=== PATIENT | male | born 1990 | race Caucasian/White ===

== ENCOUNTER 2016-10-23 16:12 | Emergency (ER) | END 2016-10-23 17:38 | disposition left against medical advice (07) | DX: Z53.21 Procedure and treatment not carried out due to patient leaving prior to being seen by health care provider (principal) ==

== ENCOUNTER 2016-11-01 14:49 | Emergency (ER) | payer OTHER ==
[~2016-11-01] VITALS: Wt 72.5 kg
[~2016-11-01 14:49] MED LIST: BACTDS PO; CEPH-443 PO; CLOT30CR24 TOP; DOXY-220 PO; FLUC150T17 PO; HYDR-3498 PO; HYDR-906 PO; IBUP-1542 PO; IBUP800T25 PO; ONDA4TAB35 PO; TERB30CR15 TOP
[2016-11-01] MEDS ORDERED: AMO500 PO (17:08)
[2016-11-01] MEDS ORDERED: IBUP-1542 PO (17:08)
--- NOTE | 2016-11-01 17:11 | ERD ---
ER Documentation Chief Complaint Date/Time DATE: 11/01/16 TIME: 17:09 Chief Complaint sore throat and fever no cough for the past 2 days. HPI 26-year-old male claims sore throat and fever for last 3 days. Denies cough, vomiting, abdominal pain, neck stiffness, rashes. He has noticed complaint of a right knee injury 6 months ago which has persistent pain. He has not seen orthopedics as advised. Thinks he has a meniscal injury and thinks he needs an MRI. ROS All systems reviewed and are negative except as per history of present illness. Medications Home Meds Active Scripts Ibuprofen* (Motrin*) 600 Mg Tab, 600 MG PO Q6, #15 TAB Prov:MARGARET HDEZ MD 11/01/16 Amoxicillin* (Amoxicillin*) 500 Mg Cap, 500 MG PO TID for 10 Days, CAP Prov:MARGARET HDEZ MD 11/01/16 Ibuprofen* (Motrin*) 600 Mg Tab, 600 MG PO Q6, #30 TAB Prov:MARGARET HDEZ MD 07/14/16 Cephalexin* (Keflex*) 500 Mg Capsule, 500 MG PO QID for 10 Days, CAP Prov:MARGARET HDEZ MD 07/14/16 Hydrocodone/Acetaminophen ([place] 5-325 Tablet) 1 Each Tablet, 1 TAB PO Q6H Y for PAIN, #10 TAB Prov:TIKA THRASHER NP 06/19/16 Ibuprofen* (Motrin*) 800 Mg Tab, 800 MG PO Q6, #20 TAB Prov:TIKA THRASHER NP 06/19/16 Sulfamethoxazole-Trimethoprim* (Bactrim* DS) 800-160 Mg Tab, 1 TAB PO BID for 7 Days, #14 TAB 0 Refills Prov:NEVIN OSULLIVAN-Angélica 01/15/16 Fluconazole* (Diflucan*) 150 Mg Tablet, 150 MG PO once a week, #3 TAB 0 Refills Prov:NEVIN OSULLIVAN-Angélica 01/15/16 Cephalexin* (Keflex*) 500 Mg Capsule, 500 MG PO TID for 7 Days, #21 CAP 0 Refills Prov:NEVIN OSULLIVAN-C 01/15/16 Terbinafine Hcl* (Terbinafine Hcl*) 1% - 30 Gm Cream..g., 1 APPLIC TOP BID for 14 Days, #2 TUB 0 Refills Prov:NEVIN OSULLIVAN PA-C 01/15/16 Doxycycline Monohydrate* (Doxycycline Monohydrate*) 100 Mg Tablet, 100 MG PO BID for 10 Days, TAB Prov:MARGARET HDEZ MD 01/04/16 Clotrimazole* (Clotrimazole* AF) 1% - 30 Gm Cream.gm., 1 APPLIC TOP BID for 10 Days, TUB Prov:MARGARET HDEZ MD 01/04/16 Ondansetron Hcl* (Zofran* ODT) 4 mg -ODT Tab.disper, 4 MG PO Q4H Y for NAUSEA AND OR VOMITING, #10 TAB 0 Refills Prov:NEVIN OSULLIVAN PA-C 06/10/15 Hydrocodone Bit-Acetaminophen* ([place]*) 5-325 Mg Tab, 1 TAB PO Q6 Y for PAIN, # 14 TAB Prov:SERA SUNSHINE PA-C 02/10/15 Allergies Allergies: Coded Allergies: No Known Allergies (Verified Allergy, Mild, 10/31/15) PMhx/Soc Medical and Surgical Hx: pt denies Medical Hx, pt denies Surgical Hx History of Surgery: No Anesthesia Reaction: No Hx Neurological Disorder: No Hx Respiratory Disorders: No Hx Cardiac Disorders: No Hx Psychiatric Problems: No Hx Alcohol Use: No Hx Substance Use: No Hx Tobacco Use: No Physical Exam Vitals Vital Signs Date Time Temp Pulse Resp B/P Pulse Ox O2 Delivery O2 Flow Rate FiO2 11/01/16 14:50 101.5 112 21 140/75 98 Physical Exam Const: [] Alert, [id number] per Head: Atraumatic Eyes: Normal Conjunctiva ENT: Normal External Ears, Nose and Mouth. TMs normal. There is erythema in oropharynx with 3+ tonsils. Airways patent. There is tender anterior cervical lymphadenitis. Neck: Full range of motion..~ No meningismus. Resp: Clear to auscultation bilaterally Cardio: Regular rate and rhythm, no murmurs Abd: Soft, non tender, non distended. Normal bowel sounds Skin: No petechiae or rashes Back: No midline or flank tenderness Ext: No cyanosis, or edema. Tenderness in the right medial joint line of the knee without effusion, erythema, warmth deformities, calf swelling. Neur: Awake and alert Psych: Normal Mood and Affect Results 24 hrs Current Medications Medications (Trade) Dose Ordered Sig/Ricky Route PRN Reason Start Time Stop Time Status Last Admin Dose Admin Ibuprofen (Motrin) 600 mg ONCE ONCE PO 11/01/16 17:30 11/01/16 17:31 11/01/16 17:07 Prednisone (Prednisone) 40 mg ONCE ONCE PO 11/01/16 17:30 11/01/16 17:31 11/01/16 17:07 Procedures/MDM Patient signs and symptoms of acute pharyngitis and right knee pain suggestive of meniscal injury. Patient will referred to local [facility] in orthopedics for further evaluation and outpatient management. He was given ibuprofen and prednisone here for lymphadenitis and fever. Will treat with amoxicillin and ibuprofen and instructions to follow-up as directed. She does return for difficulty breathing, swelling, new worsening symptoms with primary doctor as directed as well as orthopedist. There is no signs or symptoms to suggest emergent knee conditions such as septic arthritis, fracture, ischemia, deficits. The patient was stable with no new complaints during the ER course. Clinically, there is no current evidence to suggest meningitis, sepsis, acute abdomen, pneumonia, acute coronary syndrome, pulmonary embolism, or any other emergent condition appearing to require further evaluation or hospitalization. The patient should certainly return for any new or worsening symptoms per the aftercare instructions. They should otherwise follow-up with her primary care doctor for reevaluation this week. Departure Diagnosis: Primary Impression: Knee pain Laterality: right Chronicity: unspecified Qualified Code: M25.561 - Right knee pain, unspecified chronicity Additional Impression: Sore throat Condition: Stable Patient Instructions: Knee Pain, Meniscus Injury (Possible), Pharyngitis, Strep (Presumed) Referrals: CARMELITA BORGES MD COUNT INCLUDES THE [facility] YOU HAVE RECEIVED A MEDICAL SCREENING EXAM AND THE RESULTS INDICATE THAT YOU DO NOT HAVE A CONDITION THAT REQUIRES URGENT TREATMENT IN THE EMERGENCY DEPARTMENT. FURTHER EVALUATION AND TREATMENT OF YOUR CONDITION CAN WAIT UNTIL YOU ARE SEEN IN YOUR DOCTORS OFFICE WITHIN THE NEXT 1-2 DAYS. IT IS YOUR RESPONSIBILITY TO MAKE AN APPOINTMENT FOR FOLOW-UP CARE. IF YOU HAVE A PRIMARY DOCTOR --you should call your primary doctor and schedule an appointment IF YOU DO NOT HAVE A PRIMARY DOCTOR YOU CAN CALL OUR PHYSICIAN REFERRAL HOTLINE AT IF YOU CAN NOT AFFORD TO SEE A PHYSICIAN YOU CAN CHOSE FROM THE FOLLOWING [facility] [address] [facility] [address] [facility] [address] [facility]. [facility] [address] [facility]. [facility] [phone] [address] [facility]. [facility] [address] Additional Instructions: See orthopedist for further evaluation and knee. He may need authorization from primary care doctor. See [facility] for possible referral. MARGARET HDEZ MD Nov 01, 2016 17:11
[2016-11-01] MEDS ORDERED: IBUPROFEN 600 MG TAB PO ONE (17:30)
[2016-11-01] MEDS ORDERED: predniSONE 20 MG TAB PO ONE (17:30)
== END 2016-11-01 17:15 | disposition home or self-care (01) ==
LOC: FTE 14:49
DX: M25.561 Pain in right knee (principal)
CPT/HCPCS: J7512; Z7610; 99283

== ENCOUNTER 2017-02-17 23:05 | Emergency (ER) | payer SELFPAY ==
[~2017-02-17] VITALS: Wt 76.0 kg
[~2017-02-17 23:05] MED LIST changes: +AMO500 PO
[2017-02-18] MEDS ORDERED: IBUP-1542 PO (00:35)
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
== END 2017-02-18 01:24 | disposition home or self-care (01) ==
LOC: FTE 23:05
DX: M25.561 Pain in right knee (principal)
CPT/HCPCS: 99283